=== PATIENT | female | born 1985 | race Caucasian/White ===

== ENCOUNTER 2020-10-15 18:51 | Inpatient (IN) | payer OTHER ==
[2020-10-15] MEDS ORDERED: DINOPROSTONE 10 MG VAGINAL SUPPOSITORY VG ONE (20:15)
[2020-10-15] MEDS: ELECTROLYTE-148 SOLN 1,000 ML IV SCH (21:50)
[2020-10-15] MEDS ORDERED: BUTORPHANOL TARTRATE 2 MG/ML VIAL IVPUSH ONE (22:02)
[2020-10-15] MEDS ORDERED: PROMETHAZINE HCL 25 MG/1 ML VIAL IVPUSH ONE (22:02)
[2020-10-15 22:12] LABS: BASO % 0.7 % (0-2.0); EOS % 0.3 % (0-4.5); HEMATOCRIT 36.1 % (32.4-45.2); HEMOGLOBIN 12.1 GM/dL (10.7-15.3); LYMPH % 25.5 % (8-40); MCH 28.5 pg (25.7-33.7); MCHC 33.4 g/dl (32.0-36.0); MEAN CELL VOLUME 85.1 fl (80-96); MEAN PLT VOLUME 8.6 fl (7.5-11.1); MONO % 8.1 % (3.8-10.2); NEUT % 65.4 % (42.8-82.8); PLATELET COUNT 187 10^3/uL (134-434); RBC 4.24 M/mm3 (3.60-5.2); RDW 15.2 % (11.6-15.6); WHITE BLOOD COUNT 6.3 K/mm3 (4.0-10.0)
[2020-10-15 22:15] VITALS: BMI 32.5
[2020-10-15 22:18] LABS: INR 0.93 (0.83-1.09); PROTHROMBIN TIME (PATIENT) 11.5 SEC (9.7-13.0)
[2020-10-15 22:21] LABS: ACTIVATED PTT 25.9 SECONDS (25.2-36.5)
[2020-10-15 22:32] LABS: ALBUMIN 2.7 g/dl (3.4-5.0); BLOOD UREA NITROGEN 9.8 mg/dL (7-18); CALCIUM 8.9 mg/dL (8.5-10.1)
[2020-10-15 22:36] LABS: CREATININE 0.6 mg/dL (0.55-1.3)
[2020-10-15 22:38] LABS: BILIRUBIN,TOTAL 0.2 mg/dL (0.2-1); TOT PROT 6.3 g/dl (6.4-8.2)
[2020-10-16] MEDS ORDERED: OXYTOCIN 30 UNITS in 0.9% NS 30 UNIT/500 ML INFUS.BAG IVPB ONE (10:37)
[2020-10-16] MEDS ORDERED: OXYTOCIN 30 UNITS in 0.9% NS 30 UNIT/500 ML INFUS.BAG IVPB SCH (10:45)
[2020-10-16] MEDS ORDERED: AMPICILLIN SODIUM 2 GM VIAL ONE (11:54)
[2020-10-16] MEDS ORDERED: AMPICILLIN - 2 GM in SODIUM CHLORIDE 100 ML IVPB ONE (12:00)
[2020-10-16] MEDS ORDERED: AMPICILLIN SODIUM 1 GM VIAL ONE ×3 (16:39→23:49)
[2020-10-16] MEDS: AMPICILLIN - 1 GM in SODIUM CHLORIDE 100 ML IVPB SCH ×2 (16:40→20:00)
[2020-10-16] MEDS: ELECTROLYTE-148 SOLN 1,000 ML IV SCH (18:55)
[2020-10-16] MEDS ORDERED: PROMETHAZINE HCL 25 MG/1 ML VIAL ONE (23:10)
[2020-10-16] MEDS ORDERED: BUTORPHANOL TARTRATE 2 MG/ML VIAL ONE (23:10)
[2020-10-16 23:11] LABS: HIV INTERPRETATION NEGATIVE (NEGATIVE)
[2020-10-17] MEDS ORDERED: FENTANYL/BUPIVACAINE/NS/PF - PCEA - 50 ML DISP.SYRIN EP ONE ×4 (01:01→15:18)
[2020-10-17] MEDS: FENTANYL/BUPIVACAINE/NS/PF - PCEA - 50 ML DISP.SYRIN EP SCH ×4 (02:30→15:24)
[2020-10-17] MEDS ORDERED: NALOXONE HCL 0.4 MG/ML VIAL IVPUSH PRN (02:48)
[2020-10-17] MEDS: ELECTROLYTE-148 SOLN 1,000 ML IV SCH ×2 (03:25→10:00)
[2020-10-17] MEDS ORDERED: AMPICILLIN SODIUM 1 GM VIAL ONE ×4 (04:01→17:17)
[2020-10-17] MEDS: AMPICILLIN - 1 GM in SODIUM CHLORIDE 100 ML IVPB SCH ×5 (04:05→17:20)
[2020-10-17] MEDS ORDERED: BUPIVACAINE HCL/PF 0.25% (2.5MG/ML) 10 ML VIAL ONE ×2 (10:01→15:33)
[2020-10-17] MEDS ORDERED: PCA PUMP NR ONE (12:57)
[2020-10-17] MEDS ORDERED: LIDOCAINE HCL/EPINEPHRINE/PF 10 ML VIAL ONE ×2 (17:17→17:56)
[2020-10-17] MEDS ORDERED: CITRIC ACID/SODIUM CITRATE 30 ML UNIT-DOSE CUP PO ONE (17:53)
[2020-10-17] MEDS ORDERED: OXYTOCIN 20 UNITS in 0.9% NS 20 UNIT/1,000 ML INFUS.BAG IV ONE ×2 (17:58→20:03)
[2020-10-17] MEDS ORDERED: WITCH HAZEL 50% (TUCKS) 40 PAD/JAR PAD TP PRN (18:02)
[2020-10-17] MEDS ORDERED: IBUPROFEN 800 MG/8 ML IJ IVPB PRN (18:02)
[2020-10-17] MEDS ORDERED: diphenhydrAMINE HCL 25 MG CAPSULE (FP) PO PRN (18:02)
[2020-10-17] MEDS ORDERED: BENZOCAINE 28 GM HEMORRHOIDAL OINTMENT PR PRN (18:02)
[2020-10-17] MEDS ORDERED: METHYLERGONOVINE MALEATE 0.2 MG/1 ML AMP IM PRN (18:02)
[2020-10-17] MEDS ORDERED: BENZOCAINE 20% 57 GM BOTTLE TP PRN (18:02)
[2020-10-17] MEDS ORDERED: oxyCODONE HCL 5 MG TABLET PO PRN ×2 (18:02)
[2020-10-17] MEDS ORDERED: ePHEDrine SULFATE 50 MG/1 ML AMPULE ONE (18:04)
[2020-10-17] MEDS ORDERED: PHENYLEPHRINE HCL 10 MG/1 ML SINGLE DOSE VIAL ONE (18:06)
[2020-10-17] MEDS ORDERED: OXYTOCIN 20 UNITS in 0.9% NS 20 UNIT/1,000 ML INFUS.BAG IV SCH (18:15)
[2020-10-17] MEDS ORDERED: DEXTROSE 5%-LACTATED RINGERS 1,000 ML IV SCH (18:15)
[2020-10-17] MEDS ORDERED: morphine SULFATE/PF 0.5 MG/ML (2cc Syringe - QUVA) ONE ×2 (19:05)
[2020-10-17 19:36] LABS: CORD BASE EXCESS -4.7 mmol/L (0-2); CORD HCO3 20.8 mmHg (20-29); CORD PCO2 40.2 mmHg (30-78); CORD pH 7.332 (7.14-7.44)
[2020-10-17 19:39] LABS: CORD PCO2 49.7 mmHg (30-78); CORD pH 7.264 (7.14-7.44)
[2020-10-18] MEDS: CEFAZOLIN 1 GM/D5W 1 GM/50 ML BAG IVPB SCH ×2 (01:07→09:24)
[2020-10-18] MEDS: FENTANYL/BUPIVACAINE/NS/PF - PCEA - 50 ML DISP.SYRIN EP SCH (03:00)
[2020-10-18] MEDS: IBUPROFEN 600 MG TABLET (FP) PO PRN ×2 (09:21→19:00)
[2020-10-18] MEDS: SIMETHICONE 80 MG TAB.CHEW (FP) PO PRN ×2 (09:22→19:01)
[2020-10-18 10:03] LABS: BASO % 0.3 % (0-2.0); EOS % 0.2 % (0-4.5); HEMATOCRIT 31.3 % (32.4-45.2); HEMOGLOBIN 10.5 GM/dL (10.7-15.3); LYMPH % 11.5 % (8-40); MCH 28.8 pg (25.7-33.7); MCHC 33.6 g/dl (32.0-36.0); MEAN CELL VOLUME 85.8 fl (80-96); MEAN PLT VOLUME 8.3 fl (7.5-11.1); MONO % 7.6 % (3.8-10.2); NEUT % 80.4 % (42.8-82.8); PLATELET COUNT 184 10^3/uL (134-434); RBC 3.65 M/mm3 (3.60-5.2); RDW 15.3 % (11.6-15.6); WHITE BLOOD COUNT 8.7 K/mm3 (4.0-10.0)
[2020-10-18] MEDS: ACETAMINOPHEN 325 MG TABLET (FP) PO PRN ×2 (12:27→19:01)
[2020-10-18] MEDS ORDERED: BISACODYL 10 MG SUPP.RECT PR PRN (18:02)
[2020-10-19] MEDS: IBUPROFEN 600 MG TABLET (FP) PO PRN ×3 (00:18→18:12)
[2020-10-19] MEDS: ACETAMINOPHEN 325 MG TABLET (FP) PO PRN ×3 (00:18→18:12)
[2020-10-19] MEDS: SIMETHICONE 80 MG TAB.CHEW (FP) PO PRN ×3 (00:18→18:12)
[2020-10-19] MEDS ORDERED: SENNOSIDES/DOCUSATE COMBO (SENNA PLUS) TABLET (UD) PO PRN (22:00)
[2020-10-20] MEDS: IBUPROFEN 600 MG TABLET (FP) PO PRN ×2 (03:20→10:57)
[2020-10-20] MEDS: ACETAMINOPHEN 325 MG TABLET (FP) PO PRN ×2 (03:20→10:57)
[2020-10-20 08:54] LABS: BASO % 0.5 % (0-2.0); EOS % 0.9 % (0-4.5); HEMOGLOBIN 10.2 GM/dL (10.7-15.3); LYMPH % 17.4 % (8-40); MCH 28.9 pg (25.7-33.7); MCHC 33.9 g/dl (32.0-36.0); MEAN CELL VOLUME 85.5 fl (80-96); MONO % 5.1 % (3.8-10.2); NEUT % 76.1 % (42.8-82.8); PLATELET COUNT 209 10^3/uL (134-434); RBC 3.51 M/mm3 (3.60-5.2); RDW 15.7 % (11.6-15.6); WHITE BLOOD COUNT 6.6 K/mm3 (4.0-10.0)
[2020-10-20 09:14] VITALS: BP 107/69; PULSE 89; TEMP 98.7
== END 2020-10-20 11:50 | disposition home or self-care (01) | DRG 785 ==
LOC: JLDR 18:51 → J3W 10-17 21:48
PROVIDERS: ADMIT Obstetrics & Gynecology; ATTEND Obstetrics & Gynecology
PROC: 3E0P7VZ Introduction of Hormone into Female Reproductive, Via Natural or Artificial Opening (ICD-10-PCS; 2020-10-15)
PROC: 3E033VJ Introduction of Other Hormone into Peripheral Vein, Percutaneous Approach (ICD-10-PCS; 2020-10-16)
PROC: 10D00Z1 Extraction of Products of Conception, Low, Open Approach (ICD-10-PCS; principal; 2020-10-17)
PROC: 0UT70ZZ Resection of Bilateral Fallopian Tubes, Open Approach (ICD-10-PCS; 2020-10-17)
PROC: 10907ZC Drainage of Amniotic Fluid, Therapeutic from Products of Conception, Via Natural or Artificial Opening (ICD-10-PCS; 2020-10-17)
DX: O62.0 Primary inadequate contractions (principal); O65.4 Obstructed labor due to fetopelvic disproportion, unspecified; Z30.2 Encounter for sterilization; Z3A.39 39 weeks gestation of pregnancy; Z37.0 Single live birth
CPT/HCPCS: 36415; 36600; 80053; 82803; 85025; 85610; 85730; 86762; 86780; 86850; 86900; 86901; 87340; 87389

== ENCOUNTER 2021-08-20 04:42 | Day surgery (SDC) | payer OTHER ==
[2021-08-15 10:18] VITALS: BMI 31.9
[2021-08-20] MEDS ORDERED: ACETAMINOPHEN INJECTION 100 ML IVPB ONE (14:42)
[2021-08-20] MEDS ORDERED: ACETAMINOPHEN 1000 MG/100 ML BAG IVPB ONE ×2 (15:15→17:51)
[2021-08-20] MEDS ORDERED: PROPOFOL 20 ML ONE ×3 (16:40→17:26)
[2021-08-20] MEDS ORDERED: FENTANYL CITRATE/PF 50 MCG/ML VIAL ONE ×4 (16:41→18:41)
[2021-08-20] MEDS ORDERED: MIDAZOLAM HCL 2 MG/2 ML SINGLE DOSE VIAL ONE (16:41)
[2021-08-20] MEDS ORDERED: ceFAZolin SODIUM 1 GM VIAL IVPB ONE (17:00)
[2021-08-20] MEDS ORDERED: ONDANSETRON 4 MG/2 ML VIAL IVPUSH PRN (17:51)
[2021-08-20] MEDS ORDERED: oxyCODONE HCL 5 MG TABLET PO PRN (17:51)
[2021-08-20] MEDS ORDERED: LACTATED RINGERS SOLUTION 1,000 ML IV SCH (18:00)
[2021-08-20] MEDS ORDERED: ONDANSETRON 4 MG/2 ML VIAL ONE ×2 (18:05→19:08)
[2021-08-20] MEDS ORDERED: ONDANSETRON 4 MG/2 ML VIAL IVPUSH ONE (18:08)
[2021-08-20] MEDS ORDERED: oxyCODONE HCL 10 MG SUSTAINED ACTING TABLET ONE (19:08)
[2021-08-20 19:43] VITALS: TEMP 97.8
[2021-08-20 19:47] VITALS: BP 132/82; PULSE 80
== END 2021-08-20 19:30 | disposition home or self-care (01) ==
LOC: JASU-SURG 04:42
PROVIDERS: ATTEND Obstetrics & Gynecology
PROC: 0UDB7ZZ Extraction of Endometrium, Via Natural or Artificial Opening (ICD-10-PCS; 2021-08-20)
PROC: 0U5B8ZZ Destruction of Endometrium, Via Natural or Artificial Opening Endoscopic (ICD-10-PCS; principal; 2021-08-20 13:30)
DX: N92.0 Excessive and frequent menstruation with regular cycle (principal)
CPT/HCPCS: 81025; 88305-TC; 94760